=== PATIENT | male | born 1995 | race Two or more races ===

== ENCOUNTER 2024-01-27 19:56 | Inpatient (IN) | payer OTHER ==
[~2024-01-27] VITALS: Ht 165.1 cm; Wt 65.0 kg
[2024-01-27] MEDS ORDERED: ACETAMINOPHEN 325 MG TABLET PO PRN (21:30)
[2024-01-27 21:36] LABS: BASOPHILS % (AUTO) 0.7 % (0.0-2.0); EOSINOPHILS % (AUTO) 4.4 % (1.0-6.0); HEMATOCRIT 42.5 % (41-53); HEMOGLOBIN 14.4 g/dL (13.5-17.5); LYMPHOCYTES # (AUTO) 2.4 K/uL (1.0-4.8); LYMPHOCYTES % (AUTO) 32.2 % (22.0-44.0); MEAN CORPUSCULAR HEMOGLOBIN 28.6 pg (26.0-34.0); MEAN CORPUSCULAR HGB CONC 33.9 G/dL (31.0-37.0); MEAN CORPUSCULAR VOLUME 84 fL (80-100); MONOCYTES # (AUTO) 0.7 K/uL (0.1-1.0); MONOCYTES % (AUTO) 9.1 % (2.0-9.0); NEUTROPHILS # (AUTO) 3.9 K/uL (1.8-7.7); NEUTROPHILS % (AUTO) 53.6 % (40.0-70.0); PLATELET COUNT (AUTO) 290 K/uL (150-450); RED BLOOD CELL COUNT(AUTO) 5.04 MIL/uL (4.50-5.90); RED CELL DISTRIBUTION WIDTH 14.3 % (11.5-14.5); WHITE BLOOD COUNT (AUTO) 7.4 K/uL (4.5-11.0)
[2024-01-27 21:53] LABS: ANION GAP 8 mmol/L (8-16); CALCIUM, TOTAL 9.8 mg/dL (8.8-10.5); CARBON DIOXIDE 29 mmol/L (22-29); CHLORIDE 102 mmol/L (98-107); CREATININE 1.02 mg/dL (0.60-1.30); GLOMERULAR FILTR. RATE CALC > 60 mL/min (>60); GLUCOSE,RANDOM 101 mg/dL (70-110); POTASSIUM 4.4 mmol/L (3.5-5.1); SODIUM SERUM 139 mmol/L (136-145); UREA NITROGEN, BLOOD 20 mg/dL (7-18)
[2024-01-27 21:59] LABS: ALANINE AMINOTRANSFERASE 19 U/L (12-78); ALBUMIN 4.7 g/dL (3.4-5.0); ALKALINE PHOSPHATASE 103 U/L (46-116); ASPARTATE AMINOTRANSFERASE 26 U/L (15-37); BILIRUBIN,TOTAL 0.6 mg/dL (0.1-1.0); TOTAL PROTEIN, SERUM 8.4 g/dL (6.4-8.2)
[2024-01-27] MEDS: HEPARIN SODIUM,PORCINE 5,000 UNITS/ML VIAL SQ SCH (23:14)
[2024-01-28 04:56] LABS: COVID AG,FIA SOURCE NASAL SWAB
[2024-01-28 05:21] LABS: SARS-COV2 (COVID) ANTIGEN,FIA Negative (Negative)
[2024-01-28] MEDS ORDERED: SODIUM CHLORIDE 3% 15 ML NEB SOLUTION NEB ONE (07:08)
[2024-01-28 07:11] LABS: ANION GAP 6 mmol/L (8-16); CALCIUM, TOTAL 9.2 mg/dL (8.8-10.5); CARBON DIOXIDE 30 mmol/L (22-29); CHLORIDE 103 mmol/L (98-107); CREATININE 1.12 mg/dL (0.60-1.30); GLOMERULAR FILTR. RATE CALC > 60 mL/min (>60); GLUCOSE,RANDOM 93 mg/dL (70-110); POTASSIUM 4.3 mmol/L (3.5-5.1); SODIUM SERUM 139 mmol/L (136-145); UREA NITROGEN, BLOOD 18 mg/dL (7-18)
[2024-01-28 07:12] LABS: BASOPHILS % (AUTO) 0.8 % (0.0-2.0); EOSINOPHILS % (AUTO) 6.3 % (1.0-6.0); HEMATOCRIT 40.9 % (41-53); LYMPHOCYTES # (AUTO) 1.6 K/uL (1.0-4.8); LYMPHOCYTES % (AUTO) 27.6 % (22.0-44.0); MEAN CORPUSCULAR HEMOGLOBIN 28.9 pg (26.0-34.0); MEAN CORPUSCULAR HGB CONC 34.2 G/dL (31.0-37.0); MEAN CORPUSCULAR VOLUME 85 fL (80-100); MONOCYTES # (AUTO) 0.6 K/uL (0.1-1.0); MONOCYTES % (AUTO) 10.7 % (2.0-9.0); NEUTROPHILS # (AUTO) 3.1 K/uL (1.8-7.7); NEUTROPHILS % (AUTO) 54.6 % (40.0-70.0); PLATELET COUNT (AUTO) 258 K/uL (150-450); RED BLOOD CELL COUNT(AUTO) 4.84 MIL/uL (4.50-5.90); RED CELL DISTRIBUTION WIDTH 14.2 % (11.5-14.5); WHITE BLOOD COUNT (AUTO) 5.7 K/uL (4.5-11.0)
[2024-01-28] MEDS: DOCUSATE SODIUM 100 MG CAPSULE PO SCH (08:04)
[2024-01-28 16:33] VITALS: BP 124/69; PULSE 60; RESP 17; TEMP 98.2; O2SAT 97
[2024-01-28 20:54] VITALS: BP 117/67; PULSE 69; RESP 18; TEMP 98.3
[2024-01-29] MEDS ORDERED: SODIUM CHLORIDE 3% 15 ML NEB SOLUTION NEB ONE ×2 (00:05→08:38)
[2024-01-29 00:36] VITALS: BP 105/63; PULSE 51; RESP 16; TEMP 97.6
[2024-01-29 03:06] LABS: HIV 1-2 SCREEN 4TH GEN W/RFLX Non Reactive (Non Reactive)
[2024-01-29 05:22] VITALS: BP 103/67; PULSE 67; RESP 16; TEMP 98.1
[2024-01-29 07:07] LABS: BASOPHILS % (AUTO) 0.7 % (0.0-2.0); EOSINOPHILS % (AUTO) 6.7 % (1.0-6.0); HEMATOCRIT 42.5 % (41-53); HEMOGLOBIN 14.5 g/dL (13.5-17.5); LYMPHOCYTES # (AUTO) 2.1 K/uL (1.0-4.8); LYMPHOCYTES % (AUTO) 35.4 % (22.0-44.0); MEAN CORPUSCULAR HEMOGLOBIN 28.8 pg (26.0-34.0); MEAN CORPUSCULAR VOLUME 85 fL (80-100); MONOCYTES # (AUTO) 0.5 K/uL (0.1-1.0); NEUTROPHILS # (AUTO) 2.8 K/uL (1.8-7.7); NEUTROPHILS % (AUTO) 48.2 % (40.0-70.0); PLATELET COUNT (AUTO) 265 K/uL (150-450); RED BLOOD CELL COUNT(AUTO) 5.02 MIL/uL (4.50-5.90); RED CELL DISTRIBUTION WIDTH 14.3 % (11.5-14.5); WHITE BLOOD COUNT (AUTO) 5.8 K/uL (4.5-11.0)
[2024-01-29 07:10] LABS: ALANINE AMINOTRANSFERASE 19 U/L (12-78); ALBUMIN 4.2 g/dL (3.4-5.0); ALKALINE PHOSPHATASE 98 U/L (46-116); ANION GAP 9 mmol/L (8-16); ASPARTATE AMINOTRANSFERASE 21 U/L (15-37); BILIRUBIN,TOTAL 0.8 mg/dL (0.1-1.0); CALCIUM, TOTAL 9.2 mg/dL (8.8-10.5); CARBON DIOXIDE 28 mmol/L (22-29); CHLORIDE 102 mmol/L (98-107); CREATININE 1.08 mg/dL (0.60-1.30); GLOMERULAR FILTR. RATE CALC > 60 mL/min (>60); GLUCOSE,RANDOM 87 mg/dL (70-110); SODIUM SERUM 139 mmol/L (136-145); TOTAL PROTEIN, SERUM 7.8 g/dL (6.4-8.2); UREA NITROGEN, BLOOD 19 mg/dL (7-18)
[2024-01-29 08:13] VITALS: BP 109/63; PULSE 62; RESP 17; TEMP 98.2; O2SAT 100
[2024-01-29 11:30] VITALS: BP 111/72; PULSE 68; RESP 18; TEMP 98.4
[2024-01-29 13:09] LABS: MTB-RIFAMPIN RESISTANCE NOT DETECTED (Not detectd)
[2024-01-29 13:15] LABS: MTB-RIFAMPIN RESISTANCE NOT DETECTED (Not detectd)
[2024-01-29 13:31] LABS: MTB PCR w/Rif. Resistance-SPUT DETECTED (Not Detectd)
[2024-01-29 13:32] LABS: MTB PCR w/Rif. Resistance-SPUT DETECTED (Not Detectd)
[2024-01-29 15:38] VITALS: BP 117/42; PULSE 60; RESP 18; TEMP 97.6
[2024-01-29 21:15] VITALS: BP 121/66; PULSE 73; RESP 18; TEMP 98.7
[2024-01-30 06:02] VITALS: BP 102/59; PULSE 61; RESP 18; TEMP 97.8
[2024-01-30 09:26] VITALS: BP 111/65; PULSE 54; RESP 19; TEMP 98.1
[2024-01-30 17:17] VITALS: BP 112/68; PULSE 66; RESP 18; TEMP 98
[2024-01-30 20:49] VITALS: BP 131/85; PULSE 86; RESP 19; TEMP 98.4
[2024-01-30] MEDS: ETHAMBUTOL HCL 400 MG TABLET PO SCH (20:57)
[2024-01-30] MEDS: RIFAMPIN 300 MG CAPSULE PO SCH (20:57)
[2024-01-30] MEDS: ISONIAZID 300 MG TABLET PO SCH (20:57)
[2024-01-30] MEDS: PYRAZINAMIDE 500 MG TABLET PO SCH (20:57)
[2024-01-30] MEDS: PYRIDOXINE HCL 50 MG TABLET PO SCH (20:58)
[2024-01-30 23:40] VITALS: BP 116/56; PULSE 55; RESP 19; TEMP 98.1
[2024-01-31 03:56] VITALS: BP 126/53; PULSE 65; RESP 18; TEMP 97.8
[2024-01-31] MEDS: ONDANSETRON HCL 4 MG/2 ML VIAL IVP PRN (05:45)
[2024-01-31 07:38] VITALS: BP 114/59; PULSE 54; RESP 18; TEMP 98.1
[2024-01-31 11:25] VITALS: BP 105/60; PULSE 63; RESP 18; TEMP 98.1
[2024-01-31 15:50] VITALS: BP 99/55; PULSE 72; RESP 18; TEMP 98.1
[2024-01-31 20:40] VITALS: BP 116/53; PULSE 59; RESP 18; TEMP 98.1
[2024-02-01 00:42] VITALS: BP 114/54; PULSE 57; RESP 16; TEMP 97.7
[2024-02-01 05:46] VITALS: BP 108/53; PULSE 53; RESP 16; TEMP 97.3
[2024-02-01 09:33] VITALS: BP 126/44; PULSE 72; RESP 18; TEMP 97.8
[2024-02-01 11:40] VITALS: BP 109/52; PULSE 67; RESP 19; TEMP 98
[2024-02-01 15:19] LABS: BASOPHILS % (AUTO) 0.3 % (0.0-2.0); EOSINOPHILS % (AUTO) 2.8 % (1.0-6.0); HEMOGLOBIN 14.1 g/dL (13.5-17.5); LYMPHOCYTES # (AUTO) 1.6 K/uL (1.0-4.8); LYMPHOCYTES % (AUTO) 20.8 % (22.0-44.0); MEAN CORPUSCULAR HEMOGLOBIN 28.4 pg (26.0-34.0); MEAN CORPUSCULAR HGB CONC 33.4 G/dL (31.0-37.0); MEAN CORPUSCULAR VOLUME 85 fL (80-100); MONOCYTES # (AUTO) 0.6 K/uL (0.1-1.0); MONOCYTES % (AUTO) 7.4 % (2.0-9.0); NEUTROPHILS # (AUTO) 5.4 K/uL (1.8-7.7); NEUTROPHILS % (AUTO) 68.7 % (40.0-70.0); PLATELET COUNT (AUTO) 258 K/uL (150-450); RED BLOOD CELL COUNT(AUTO) 4.95 MIL/uL (4.50-5.90); RED CELL DISTRIBUTION WIDTH 14.5 % (11.5-14.5); WHITE BLOOD COUNT (AUTO) 7.8 K/uL (4.5-11.0)
[2024-02-01 15:33] LABS: ANION GAP 6 mmol/L (8-16); CALCIUM, TOTAL 8.9 mg/dL (8.8-10.5); CARBON DIOXIDE 29 mmol/L (22-29); CHLORIDE 101 mmol/L (98-107); GLOMERULAR FILTR. RATE CALC > 60 mL/min (>60); GLUCOSE,RANDOM 107 mg/dL (70-110); POTASSIUM 4.1 mmol/L (3.5-5.1); SODIUM SERUM 136 mmol/L (136-145); UREA NITROGEN, BLOOD 21 mg/dL (7-18)
[2024-02-01 15:39] LABS: ALANINE AMINOTRANSFERASE 17 U/L (12-78); ALBUMIN 4.2 g/dL (3.4-5.0); ALKALINE PHOSPHATASE 96 U/L (46-116); ASPARTATE AMINOTRANSFERASE 18 U/L (15-37); BILIRUBIN,TOTAL 1.1 mg/dL (0.1-1.0); TOTAL PROTEIN, SERUM 7.6 g/dL (6.4-8.2)
[2024-02-01 15:43] VITALS: BP 129/78; PULSE 71; RESP 18; TEMP 98.1
[2024-02-01 21:59] VITALS: BP 129/67; PULSE 62; RESP 18; TEMP 98.2
[2024-02-02 00:10] VITALS: BP 117/58; PULSE 65; RESP 18; TEMP 98.5
[2024-02-02 04:00] VITALS: BP 98/68; PULSE 56; RESP 18; TEMP 97.9
[2024-02-02 08:44] VITALS: BP 115/83; PULSE 62; RESP 19; TEMP 98
[2024-02-02 11:33] VITALS: BP 142/72; PULSE 63; RESP 20; TEMP 97.9
[2024-02-02 15:43] VITALS: BP 119/73; PULSE 69; RESP 18; TEMP 98
[2024-02-02] MEDS ORDERED: ETHA400T33 PO (18:02)
[2024-02-02] MEDS ORDERED: ETHA100 PO (18:05)
[2024-02-02] MEDS ORDERED: ISON100T34 PO (18:06)
[2024-02-02] MEDS ORDERED: PYRA500T34 PO (18:06)
[2024-02-02] MEDS ORDERED: PYRI25TA4 PO (18:07)
[2024-02-02] MEDS ORDERED: RIFA300C62 PO (18:07)
== END 2024-02-02 20:58 | DRG 179 ==
LOC: EMS 19:59 → 5N 01-28 06:42
PROVIDERS: ADMIT Internal Medicine; ATTEND Internal Medicine
DX: A15.9 Respiratory tuberculosis unspecified (principal); Z87.891 Personal history of nicotine dependence; Z20.822 Contact with and (suspected) exposure to COVID-19; R91.1 Solitary pulmonary nodule
CPT/HCPCS: 71046; 71250; 80048; 80053; 83735; 85025; 86480; 87015; 87040; 87206; 87389; 87556; 94640; 99285; J1644; J2405; 36415-L1; 36415-TC